=== PATIENT | male | born 1965 | race Caucasian/White ===

== ENCOUNTER 2021-06-06 16:35 | Outpatient (REF) | payer SELFPAY ==
[2021-06-08 10:50] LABS: COVID-19 RT-PCR UVMMC Result Negative (Negative)
== END 2021-06-06 16:36 | disposition home or self-care (01) ==
LOC: NCHCN 16:35
PROVIDERS: Visit Provider Family Medicine
DX: Z20.822 Contact with and (suspected) exposure to COVID-19 (principal)
CPT/HCPCS: U0003